=== PATIENT | female | born 1960 | race Caucasian/White ===

== ENCOUNTER 2018-06-17 12:01 | Emergency (ER) | payer MEDICAID ==
[~2018-06-17] VITALS: Ht 162.6 cm; Wt 77.1 kg
[2018-06-17 12:02] VITALS: BP_SYST 134
[2018-06-17] MEDS ORDERED: MORPHINE 4 MG/ML INJ. SYRINGE IVP ONE (14:00)
[2018-06-17] MEDS ORDERED: DIPHENHYDRAMINE INJ 50 MG/ML VIAL IVP ONE (14:00)
[2018-06-17 14:23] LABS: BILIRUBIN,URINE NEGATIVE (NEGATIVE); BLOOD, URINE 3+ (NEGATIVE); CLARITY/URINE CLEAR (CLEAR); COLOR,URINE YELLOW (YELLOW); GLUCOSE,URINE NEGATIVE (NEGATIVE); KETONES,URINE NEGATIVE (NEGATIVE); LEUKOCYTE ESTERASE ,URINE NEGATIVE (NEGATIVE); NITRITE, URINE NEGATIVE (NEGATIVE); PH,URINE 6.5 (5.0-8.0); PROTEIN URINE NEGATIVE (NEGATIVE); UROBILINOGEN,URINE 0.2 (0.2-1.0)
[2018-06-17 14:39] LABS: BACTERIA,URINE FEW /HPF (None Seen); RBC,URINE 20-50 /HPF (0-3); WBC,URINE 0-3 /HPF (0-3)
[2018-06-17 14:40] LABS: MUCUS,URINE None Seen /LPF (None Seen)
[2018-06-17 14:51] LABS: INR 0.9 (0.8-1.2); PROTHROMBIN TIME 9.6 SECS (9.5-12.5)
[2018-06-17 14:52] LABS: BASOPHILS % (AUTO) 0.4 % (0.0-2.0); CALCIUM 8.6 mg/dL (8.4-11.0); CREATININE 0.63 mg/dL (0.55-1.30); EOSINOPHILS # (AUTO) 0.2 K/uL (0.0-0.4); HEMOGLOBIN 13.6 g/dL (12.0-16.0); LYMPHOCYTES # (AUTO) 3.1 K/uL (1.0-5.5); LYMPHOCYTES % (AUTO) 35.2 % (20.5-51.5); MEAN CORPUSCULAR HEMOGLOBIN 26 pg (27-31); MEAN CORPUSCULAR HGB CONC 32 % (32-36); MEAN CORPUSCULAR VOLUME 80 fL (79.0-98.0); MONOCYTES # (AUTO) 0.5 K/uL (0.0-1.0); NEUTROPHILS # (AUTO) 4.9 K/uL (1.8-7.7); NEUTROPHILS % (AUTO) 56.4 % (40.0-70.0); PLATELET COUNT (AUTO) 328 K/uL (130-430); POTASSIUM 4.1 mmol/L (3.5-5.1); RED BLOOD CELL COUNT(AUTO) 5.26 MIL/uL (4.2-6.2); RED CELL DISTRIBUTION WIDTH 12.8 % (9.0-15.0); WHITE BLOOD COUNT (AUTO) 8.7 K/uL (4.8-10.8)
[2018-06-17 14:56] LABS: ALBUMIN 3.4 g/dL (3.4-4.8); TOTAL BILIRUBIN 0.4 mg/dL (0.0-1.0)
[2018-06-17] MEDS ORDERED: KETOROLAC TROMETHAMINE 30 MG VIAL IVP ONE ×2 (15:15→15:45)
[2018-06-17 16:08] VITALS: BP_SYST 117
== END 2018-06-17 16:08 | disposition home or self-care (01) ==
LOC: SED 12:01
DX: N23 Unspecified renal colic (principal); J45.909 Unspecified asthma, uncomplicated; R03.0 Elevated blood-pressure reading, without diagnosis of hypertension
CPT/HCPCS: 36415; 71045; 80053; 74176; 81000; 81025; 83605; 83690; 85025; 85610; 87040; 93005; 96374; 96375; 99284; J1200; J1885; J2270

== ENCOUNTER 2021-01-17 09:42 | Emergency (ER) | payer MEDICAID ==
[~2021-01-17] VITALS: Ht 165.1 cm; Wt 77.1 kg
[2021-01-17 09:42] VITALS: BP_SYST 108
--- NOTE | 2021-01-17 09:45 | NUR ---
Patient triaged and placed in waiting room. VSS and patient appears in no acute distress at this time. Accompanied by SELF, awaiting available bed, and MD notified of need for MSE.
--- NOTE | 2021-01-17 09:50 | NUR ---
ER DR. ANDRADE EXAMINING PT IN LOBBY
--- NOTE | 2021-01-17 10:00 | NUR ---
Placed in room 8 . Placed on secured entrance monitor, blood pressure machine and pulse oximeter. To gown for exam. Side rails up.
--- NOTE | 2021-01-17 10:05 | NUR ---
PT BIB FAMILY STATES SHE FELL ON LINOLEUM FLOOR IN BATHROOM AFTER SHOWER AND HIT BACK OF HEAD. PT IS UNSURE IF SHE LOST CONSCIOUSNESS AND STARTED TO FEEL NAUSEOUS, DIZZINESS AND JOSHI. PT IS AMBULATORY, AAOX4, V/S STABLE
--- NOTE | 2021-01-17 10:34 | NUR ---
Patient transported to radiology via WC, accompanied by STAFF.
--- NOTE | 2021-01-17 10:42 | NUR ---
Returned from radiology, back to [facility].
[2021-01-17] MEDS ORDERED: HYDROcodone/ACETAMIN 5-325 MG TAB (NORCO/ VICODIN) PO ONE (11:15)
[2021-01-17] MEDS ORDERED: IBUPROFEN 800 MG TABLET PO ONE (11:15)
[2021-01-17] MEDS ORDERED: HYDR-3917 PO (11:31)
[2021-01-17] MEDS ORDERED: IBUP-1969 PO (11:31)
[2021-01-17 11:40] VITALS: BP_SYST 108
--- NOTE | 2021-01-17 11:41 | NUR ---
Patient given written and verbal discharge instructions and verbalizes understanding. ER MD discussed with patient the results and treatment provided. Patient in stable condition. ID arm band removed. Rx of NORCO AND IBUPROFEN given. Patient educated on pain management and to follow up with PMD. Pain Scale 0/10. Opportunity for questions provided and answered. Medication side effect fact sheet provided.
== END 2021-01-17 11:40 | disposition home or self-care (01) ==
LOC: SED 09:42
DX: S09.90XA Unspecified injury of head, initial encounter (principal); J45.909 Unspecified asthma, uncomplicated; W01.198A Fall on same level from slipping, tripping and stumbling with subsequent striking against other object, initial encounter; Y93.89 Activity, other specified; Y92.89 Other specified places as the place of occurrence of the external cause; Y99.8 Other external cause status
CPT/HCPCS: 70450-TC; 76376; 99284

== ENCOUNTER 2021-02-13 17:58 | Emergency (ER) | payer MEDICAID ==
[~2021-02-13] VITALS: Ht 165.1 cm; Wt 79.4 kg
[~2021-02-13 17:58] MED LIST: HYDR-3917 PO; IBUP-1969 PO
[2021-02-13 18:15] VITALS: BP_SYST 128
--- NOTE | 2021-02-13 18:20 | NUR ---
Pt to remain in the ER lobby until ER bed becomes available.
--- NOTE | 2021-02-13 21:18 | NUR ---
Patient to ER bed 6 to gown for evaluation. Side rails up. Report given to Isaac HIDALGO.
--- NOTE | 2021-02-13 21:50 | NUR ---
Provided gurney adjustment at bedside upon request. Well tolerated
--- NOTE | 2021-02-13 22:40 | NUR ---
Dr. Chicas bedside for pt eval
[2021-02-13] MEDS ORDERED: KETOROLAC TROMETHAMINE 60 MG/2 ML VIAL IM ONE (22:45)
[2021-02-13] MEDS ORDERED: METOCLOPRAMIDE HCL 10 MG/2 ML VIAL IM ONE (22:45)
[2021-02-13] MEDS ORDERED: DIPHENHYDRAMINE INJ 50 MG/ML VIAL IM ONE (22:45)
--- NOTE | 2021-02-13 22:48 | NUR ---
Pt BIB family to ED C/O Headache x 1 month since she had a head injury one month ago VSS Resting on [employer] rails up
[2021-02-13] MEDS ORDERED: METOCLOPRAMIDE HCL 10 MG/2 ML VIAL ONE (22:59)
--- NOTE | 2021-02-13 23:35 | NUR ---
Pt awaiting CT results, Dr. Chicas aware
[2021-02-14 00:48] VITALS: BP_SYST 128
--- NOTE | 2021-02-14 00:48 | NUR ---
Patient given written and verbal discharge instructions and verbalizes understanding. ER MD discussed with patient the results and treatment provided. Patient in stable condition. ID arm band removed. Patient educated on pain management and to follow up with PMD. Pain Scale 0/10 Opportunity for questions provided and answered.
== END 2021-02-14 00:48 | disposition home or self-care (01) ==
LOC: SED 17:58
DX: F07.81 Postconcussional syndrome (principal); J45.909 Unspecified asthma, uncomplicated; Z79.899 Other long term (current) drug therapy
CPT/HCPCS: 70450; 76376; 96372; 96374; 99285; J1200; J1885; J2765